=== PATIENT | male | born 1970 | race Caucasian/White ===

== ENCOUNTER 2017-04-23 07:42 | Emergency (ER) | payer MEDICAID ==
[~2017-04-23] VITALS: Ht 180.3 cm; Wt 97.5 kg
[2017-04-23 07:42] VITALS: BP_SYST 135
[~2017-04-23 07:42] MED LIST: ATEN-41 PO; CYCL-10 PO; ESCI10TA PO; HYDR-4100 PO; KLO2 PO; LEVO300T2 PO
--- NOTE | 2017-04-23 07:42 | NUR ---
BROUGHT BACK TO BED #7 AND TRIAGED. REPORT GIVEN TO ESTEFANY
--- NOTE | 2017-04-23 07:55 | NUR ---
Assumed care of patrient introduced self here for feelings bettie anxiety since last night with chest tightness describing it as Palpitations. No acute distress, respirations even and unlabored, placed on director of early childhood education w/ SR noted. 12 lead complete at bedside.
--- NOTE | 2017-04-23 08:11 | NUR ---
MD Jones at bedside.
[2017-04-23] MEDS ORDERED: ASPIRIN 325 MG TABLET PO ONE (08:15)
[2017-04-23] MEDS ORDERED: LORazepam 1 MG TABLET PO ONE ×2 (08:15→09:15)
[2017-04-23] MEDS ORDERED: NITROGLYCERIN 0.4 MG TAB.SUBL SL ONE (08:15)
[2017-04-23 08:47] LABS: BASOPHILS % (AUTO) 0.2 % (0.0-2.0); EOSINOPHILS % (AUTO) 0.1 % (0.0-4.0); HEMATOCRIT 41.5 % (36-54); HEMOGLOBIN 14.1 g/dL (14.0-18.0); LYMPHOCYTES # (AUTO) 0.8 K/uL (1.0-5.5); LYMPHOCYTES % (AUTO) 13.3 % (20.5-51.5); MEAN CORPUSCULAR HEMOGLOBIN 32 pg (27-31); MEAN CORPUSCULAR HGB CONC 34 % (32-36); MEAN CORPUSCULAR VOLUME 94 fL (79.0-98.0); MONOCYTES # (AUTO) 0.2 K/uL (0.0-1.0); MONOCYTES % (AUTO) 3.2 % (1.7-9.3); NEUTROPHILS # (AUTO) 5.2 K/uL (1.8-7.7); NEUTROPHILS % (AUTO) 83.2 % (40.0-70.0); PLATELET COUNT (AUTO) 217 K/uL (130-430); RED BLOOD CELL COUNT(AUTO) 4.41 MIL/uL (4.2-6.2); RED CELL DISTRIBUTION WIDTH 12.4 % (9.0-15.0); WHITE BLOOD COUNT (AUTO) 6.2 K/uL (4.8-10.8)
[2017-04-23 08:54] LABS: ANION GAP 10 (5-15); CALCIUM 8.8 mg/dL (8.4-11.0); CHLORIDE 101 mmol/L (98-107); CREATININE 0.77 mg/dL (0.55-1.30); GLUCOSE 113 mg/dL (70-99); POTASSIUM 3.6 mmol/L (3.5-5.1); SODIUM SERUM 137 mmol/L (136-145); UREA NITROGEN, BLOOD 7 mg/dL (8-21)
[2017-04-23 08:57] LABS: INR 1.1 (0.80-1.20); PROTHROMBIN TIME 10.9 SECS (9.5-12.5)
--- NOTE | 2017-04-23 08:57 | NUR ---
Patient reassessed after medicating no acute distress, experiencing mild headache rates 4/10 tolerable.
[2017-04-23 09:01] LABS: GFR AFRICAN AMERICAN 141 mL/min (>90)
[2017-04-23 09:10] LABS: ALANINE AMINOTRANSFERASE 33 U/L (12-78); ALBUMIN 4.1 g/dL (3.4-4.8); ASPARTATE AMINOTRANSFERASE 32 U/L (10-37); THYROID STIMULATING HORMONE 13.76 uIu/mL (0.36-3.74); TOTAL BILIRUBIN 0.5 mg/dL (0.0-1.0)
[2017-04-23 09:36] LABS: CKMB RELATIVE INDEX 0.7 (0.0-2.9); CREATINE KINASE MB 2.4 ng/mL (0-3.6)
[2017-04-23 09:38] LABS: BILIRUBIN,URINE NEGATIVE (NEGATIVE); BLOOD, URINE NEGATIVE (NEGATIVE); CLARITY/URINE CLEAR (CLEAR); COLOR,URINE YELLOW (YELLOW); GLUCOSE,URINE NEGATIVE (NEGATIVE); KETONES,URINE TRACE (NEGATIVE); LEUKOCYTE ESTERASE ,URINE NEGATIVE (NEGATIVE); NITRITE, URINE NEGATIVE (NEGATIVE); PH,URINE 6.5 (5.0-8.0); PROTEIN URINE NEGATIVE (NEGATIVE); UROBILINOGEN,URINE 0.2 (0.2-1.0)
[2017-04-23 10:13] VITALS: BP_SYST 117
--- NOTE | 2017-04-23 10:13 | NUR ---
Patient given written and verbal discharge instructions and verbalizes understanding. ER MD discussed with patient the results and treatment provided. Patient in stable condition. ID arm band removed. IV catheter removed intact and dressing applied, no active bleeding. Rx of Ativan given. Patient educated on pain management and to follow up with PMD. Pain Scale . Opportunity for questions provided and answered.
== END 2017-04-23 10:13 | disposition home or self-care (01) ==
LOC: SED 07:42
DX: F41.9 Anxiety disorder, unspecified (principal); E03.9 Hypothyroidism, unspecified; I10 Essential (primary) hypertension; E78.00 Pure hypercholesterolemia, unspecified; F17.210 Nicotine dependence, cigarettes, uncomplicated; Z90.49 Acquired absence of other specified parts of digestive tract
CPT/HCPCS: 36415; 71010; 80053; 81003; 82550-TC; 82553-TC; 84443-TC; 84484; 85025; 85610-TC; 93005; 99285